=== PATIENT | female | born 1980 | race Caucasian/White ===

== ENCOUNTER 2020-02-23 07:05 | Inpatient (IN) | payer BC, SELFPAY ==
--- NOTE | 2020-02-22 16:07 | PM.IMHP ---
H&P: HPI History of Present Illness Date/Time: 02/22/20 16:07 Chief complaint: Pre-admit Narrative: 39 y/o primigravida at 40 weeks with breech presentation discovered last week. She is interested in attempting ECV and inducing labor if successful, and proceeding with primary if not. has been otherwise uncomplicated. GBS neg. Blood type Apos. Ultrasound exam on 02/16/20 showed EFW 8#2oz, normal AFV, anterior fundal placenta, breech presentation. Review of Systems Review of Systems: All systems reviewed & are unremarkable except as noted in HPI and below [facility] Surgical History Surgical History History of tonsillectomy Family History Family History Grandparent Deaf Breast cancer Prostate carcinoma Sibling Heart defect Social History Social History Substance use: never Spiritual care concerns: No Meds Home Medications and Allergies Home Medications Medication Instructions Recorded Confirmed Type PNV cmb#95-ferrous fumarate-FA 1 tablet PO DAILY 01/24/20 01/24/20 History [] folic acid 0.4 mg PO DAILY 01/24/20 01/24/20 History Allergies Allergy/AdvReac Type Severity Reaction Status Date / Time coffee (Coffea arabica) Allergy Sneezing Verified 01/24/20 12:35 Exam Const: Orientation/consciousness: patient oriented x3 Other: Well-developed, well-nourished female in no acute distress. Neck: Thyroid: thyroid normal Lymphatic: no lymphadenopathy noted (in neck, axilla or inguinal nodes) Resp: Effort & Inspection: normal respiratory effort Auscultation: clear to auscultation bilaterally Cardio: Rate: regular rate Rhythm: regular rhythm Heart sounds: S1 normal heart sound present and S2 normal heart sound present GI: Other: ABD: Soft, nontender, gravid. FH 39cm. FHR 150bpm. : General: Yes no CVA tenderness Other: Cervix fingertip / 50%/ -2 Back/Spine/Pelvis: Back: no CVA tenderness Skin: General skin exam: normal color and no rashes or lesions noted Neuro: General: patient oriented x3 Extrem: Other: Extremities: nontender with no edema Psych: Mental Status: mental status grossly normal Affect: normal affect Assessment and Plan Assessment and plan (1) Breech presentation: Code(s): O32.1XX0 - Maternal care for breech presentation, not applicable or unspecified Status: Acute Assessment and Plan: IUP at 40 weeks with breech presentation. Have offered ECV versus primary . She is interested in ECV. If successful, will proceed to induction of labor. If not, proceed to . She understands risks of surgery to include risks of anesthesia, risks of pain, infection, bleeding, blood products, thromboembolic phenomena and damage to adjacent structures such as bowel, bladder, ureters, blood vessels and nerves. She understands all these risks and elects to proceed.
[2020-02-23] VITALS (120 sets, daily range): BP systolic 75–156; BP diastolic 51–96; PULSE 44–163; RESP 16–20; TEMP 36.3–37; O2SAT 96–100; BMI 30.2
[2020-02-23 07:46] LABS: Basophils Percent Auto 0.3 % (0.2-1.2); Eosinophils Absolute Auto 0.1 K/mm3 (0-0.3); Eosinophils Percent Auto 0.7 % (0-4.4); Hematocrit 36.4 % (37.0-47.0); Hemoglobin 12.2 g/dL (12.0-15.0); Immature Granulocyte Absolute 0.17 K/mm3 (0.00-0.031); Immature Granulocyte Percent A 1.8 % (0-0.5); Lymphocytes Percent Auto 25.9 % (18.3-44.2); Mean Corpuscular HGB Conc 33.5 g/dl (32-36); Mean Corpuscular Hemoglobin 28.9 pg (26-34); Mean Corpuscular Volume 86.3 fl (80-100); Mean Platelet Volume 11.8 fl (7.4-10.4); Monocytes Absolute Auto 0.7 K/mm3 (0.1-0.6); Monocytes Percent Auto 6.7 % (2.6-8.5); Neutrophils Absolute Auto 6.3 K/mm3 (1.3-6.7); Neutrophils Percent Auto 64.6 % (45.5-73.1); Platelet Count Result 186 k/mm3 (150-375); Red Blood Count 4.22 M/mm3 (4.2-5.4); Red Cell Distribution Width 15.3 % (11.5-14.5); White Blood Count 9.7 K/mm3 (4.5-10.0)
--- NOTE | 2020-02-23 07:59 | LDADM ---
This patient, Jacque Jhaveri, was admitted to Labor/Delivery/Recovery 118 on 02/23/20 at 07:05. Plans for labor, pain management and were discussed with patient. Patient/family oriented to hospital policies and general routines including ID bracelet, bed and alarms, visiting hours, pain management, procedures, bathroom and other care routines, personal items, smoking policy, room service/diet and guest tray routines, infant security routines, and visiting hours. Patient/Family are encouraged to report perceived risks to care and to ask questions if they do not understand what they are told or what they should do. See OBIX for further documentation.
[2020-02-23] MEDS: LACTATED RINGERS 1,000 ML 125 ML IV CONT ×4 (08:09→11:54)
--- NOTE | 2020-02-23 08:35 | P.PNAN_ITS ---
Anes - Eval Pre Procedure Procedure: labor epidural Date/Time: 02/23/20 08:35 Preop Diagnosis: labor pain Pre Op Diagnosis: External version Patient Data Age: 39 Gender: F Height: 5 ft 4 in Weight: 80 kg Last Vital Signs Pulse 71 02/23/20 08:32 BP 107/82 02/23/20 08:32 Allergies Allergy/AdvReac Type Severity Reaction Status Date / Time coffee (Coffea arabica) Allergy Sneezing Verified 01/24/20 12:35 Home Medications Medication Instructions Recorded Confirmed Type PNV cmb#95-ferrous fumarate-FA 1 tablet PO DAILY 01/24/20 01/24/20 History [] folic acid 0.4 mg PO DAILY 01/24/20 01/24/20 History Laboratory Tests 02/23/20 02/23/20 07:40 07:40 WBC 9.7 K/mm3 K/mm3 (4.5-10.0) RBC 4.22 M/mm3 M/mm3 (4.2-5.4) Hgb 12.2 g/dL g/dL (12.0-15.0) Hct 36.4 % L % (37.0-47.0) MCV 86.3 fl fl (80-100) MCH 28.9 pg pg (26-34) MCHC 33.5 g/dl g/dl (32-36) RDW 15.3 % H % (11.5-14.5) Plt Count 186 k/mm3 k/mm3 (150-375) MPV 11.8 fl H fl (7.4-10.4) Immature Gran % (Auto) 1.8 % H % (0-0.5) Neut % (Auto) 64.6 % % (45.5-73.1) Lymph % (Auto) 25.9 % % (18.3-44.2) [place] % (Auto) 6.7 % % (2.6-8.5) Eos % (Auto) 0.7 % % (0-4.4) Baso % (Auto) 0.3 % % (0.2-1.2) Lymph # (Auto) 2.50 K/mm3 K/mm3 (0.9-3.2) [place] # (Auto) 0.7 K/mm3 H K/mm3 (0.1-0.6) Eos # (Auto) 0.1 K/mm3 K/mm3 (0-0.3) Baso # (Auto) 0.0 K/mm3 K/mm3 (0.0-0.1) Abs Immat Gran (auto) 0.17 K/mm3 H K/mm3 (0.00-0.031) Absolute Neuts (auto) 6.3 K/mm3 K/mm3 (1.3-6.7) Absolute Nucleated RBC 0.0 K/mm3 K/mm3 (0.0-0.012) Nucleated RBC % 0.0 % % (0.0-0.2) RPR Pending Patient hx anesthesia problems: none Family hx anesthesia problems: none PMFSH Surgical History Surgical History History of tonsillectomy Family History Family History Grandparent Deaf Breast cancer Prostate carcinoma Sibling Heart defect Social History Social History Smoking status: Never smoker Second hand tobacco smoke exposure: No Substance use: never Spiritual care concerns: No Exam Day of Procedure 02/23/20 08:35
[2020-02-23] MEDS: TERBUTALINE SULFATE 1 MG/ML VIAL 0.25 MG SUB-Q (10:05)
--- NOTE | 2020-02-23 12:12 | PM.OBPNLAB ---
Pain Control Date/time seen: 02/23/20 4781 Assessment and Plan Comments: AVSS ABD soft, nontender, gravid, vertex EXT nontender NST reactive TOCO: rare contractions Bedside ultrasound shows ashley breech presentation, with back on maternal left, adequate AFV, fundal placenta. Procedure: She was given terbuatline 0.25mg sc x 1. Under ultrasound guidance, the breech was elevated and a forward (counterclockwise) somersault was attempted. This was unsuccessful, so a reverse (clockwise) somersault was attempted. Also not successful. One final attempt was made, then we decided to abandon further attempts. FHR was visualized and reassuring throughout. The patient tolerated the procedure well. A: Persistent breech presentation at 40 weeks, failed ECV. P: I offered her a primary . Reviewed risks, benefits, alternatives in detail. She unterstands and elects to proceed.
[2020-02-23] MEDS: ceFAZolin 2 GM/D5W 50 ML 2 GM/50 ML BAG IVPB (12:17)
--- NOTE | 2020-02-23 13:03 | PM.OBPRVD ---
OB - Delivery Note Procedure Delivery date: 02/23/20 Procedure: Procedures Operation Date: 02/23/20 12:00 <No data on this case meets the specified criteria> Attempted external cephalic version under ultrasound guidance. Primary low transverse delivery Specimen: Yes (cord blood) Estimated blood loss (mL): 210 Anesthesia type: Epidural Disposition: PACU Complications: None Narrative: The patient was taken to the operating room where she was prepared and draped in the usual sterile fashion in dorsal supine position with a leftward tilt. She received cefazolin preoperatively. Spinal anesthesia was found to be adequate. A Pfannenstiel skin incision was made and carried through to the underlying layer of the fascia. The fascia was incised in the midline and the incision was extended laterally. The fascia was dissected free of the underlying rectus muscles. The rectus muscles were in the midline. The peritoneum was identified, tented up and entered sharply. The peritoneal incision was extended superiorly and inferiorly with good visualization of the bladder. The bladder blade was placed. The vesicouterine peritoneum was identified, tented up and entered sharply. The incision was extended laterally and the bladder flap was developed. The bladder blade was replaced. The uterus was then incised sharply in a transverse fashion along the lower uterine segment. The incision was extended laterally. The infant's head was delivered atraumatically to the sterile field, followed by the body. The nose and mouth were bulb suctioned. After a delay, the cord was clamped and cut. The infant was handed off the field. Cord blood was collected. The placenta was removed manually and was passed off the field. The uterus was exteriorized and cleared of all clots and debris. The uterine incision was reapproximated using 0 Monocryl in a running, locked fashion. A second, imbricating layer was placed. Excellent hemostasis resulted as did excellent reapproximation of the normal anatomy. The uterus was returned the abdomen. The pelvis was irrigated copiously with warmed normal saline. Rigorous hemostasis was assured. The fascial layer was reapproximated using 0 Vicryl in a running fashion. The skin was closed with a running, subcuticular stitch of 4 0 Vicryl. Dermaflex was applied externally. Sponge, lap, needle and instrument counts were correct. The patient was taken to the recovery room in stable condition. The infant went to the nursery in stable condition. I was present and scrubbed the entire procedure. Baby Date of : 02/23/20 Time of : 12:35 Weeks of gestation at delivery: 40 Infant gender: Female Weight (pounds): 8 Weight (ounces): 4 presentation: breech Placenta delivery description: Manual Removal and Normal Configuration cord vessel description: 3 Vessels score one minute: 8 score five minutes: 9
[2020-02-23] MEDS: OXYTOCIN 30 UNITS/NS 500 ML 30 UNITS/500 ML BAG 125 UNITS IV CONT (14:08)
--- NOTE | 2020-02-23 15:40 | OBPPTRN ---
Patient transferred to post room # 290 via stretcher. Support person present. Oriented to unit, room, information board, rooming in, admission packet and security measures. Patient verbalizes understanding.
[2020-02-23] MEDS: KETOROLAC 30 MG/ML VIAL (*BKC) IV PUSH (16:29)
[2020-02-23] MEDS: ONDANSETRON INJ 4 MG/2 ML VIAL IV PUSH (18:22)
[2020-02-24 00:15] VITALS: BP 122/72; PULSE 45; RESP 18; TEMP 36.5; O2SAT 96
[2020-02-24] MEDS: PROCHLORPERAZINE EDISYLATE 10 MG/2 ML VIAL IV PUSH (01:30)
[2020-02-24 01:37] LABS: Basophils Percent Auto 0.1 % (0.2-1.2); Hematocrit 28.9 % (37.0-47.0); Hemoglobin 9.4 g/dL (12.0-15.0); Immature Granulocyte Absolute 0.14 K/mm3 (0.00-0.031); Lymphocytes Absolute Auto 1.54 K/mm3 (0.9-3.2); Lymphocytes Percent Auto 11.1 % (18.3-44.2); Mean Corpuscular HGB Conc 32.5 g/dl (32-36); Mean Corpuscular Hemoglobin 28.7 pg (26-34); Mean Corpuscular Volume 88.4 fl (80-100); Mean Platelet Volume 11.7 fl (7.4-10.4); Monocytes Absolute Auto 0.5 K/mm3 (0.1-0.6); Monocytes Percent Auto 3.7 % (2.6-8.5); Neutrophils Absolute Auto 11.7 K/mm3 (1.3-6.7); Neutrophils Percent Auto 84.1 % (45.5-73.1); Platelet Count Result 132 k/mm3 (150-375); Red Blood Count 3.27 M/mm3 (4.2-5.4); Red Cell Distribution Width 15.4 % (11.5-14.5); White Blood Count 13.9 K/mm3 (4.5-10.0)
[2020-02-24 04:20] VITALS: BP 118/74; PULSE 73; RESP 18; TEMP 36.6; O2SAT 98
[2020-02-24 06:45] VITALS: BP 116/74; PULSE 53; RESP 20; TEMP 36.9
--- NOTE | 2020-02-24 07:03 | PM.OBPNVD ---
OB - PN: Subj Subjective Date/time seen: 02/24/20 07:03 Patient comments: no complaints and pain well controlled baby status: doing well and nursing well OB - PN: Obj Data Labs CBC & Chem 7: 02/24/20 01:33 Labs: Laboratory Results - last 24 hr 02/23/20 02/23/20 02/24/20 07:40 07:40 01:33 WBC 9.7 13.9 H RBC 4.22 3.27 L Hgb 12.2 9.4 L Hct 36.4 L 28.9 L MCV 86.3 88.4 MCH 28.9 28.7 MCHC 33.5 32.5 RDW 15.3 H 15.4 H Plt Count 186 132 L MPV 11.8 H 11.7 H Immature Gran % (Auto) 1.8 H 1.0 H Neut % (Auto) 64.6 84.1 H Lymph % (Auto) 25.9 11.1 L [place] % (Auto) 6.7 3.7 Eos % (Auto) 0.7 0.0 Baso % (Auto) 0.3 0.1 L Lymph # (Auto) 2.50 1.54 [place] # (Auto) 0.7 H 0.5 Eos # (Auto) 0.1 0.0 Baso # (Auto) 0.0 0.0 Abs Immat Gran (auto) 0.17 H 0.14 H Absolute Neuts (auto) 6.3 11.7 H Absolute Nucleated RBC 0.0 0.0 Nucleated RBC % 0.0 0.0 Blood Type O Positive Antibody Screen Negative OB - PN A/P Plan day: 1 Plan: routine care Time Spent With Patient Time: Total time spent is greater than 50% in coordination of care (as documented) at patient's floor/unit and/or counseling patient: Time with patient: less than 15 minutes Review of Systems Review of Systems: All systems reviewed & are unremarkable except as noted in HPI and below Exam Const: General: no acute distress Eyes: General: appearance normal, both eyes and all related structures Neck: Neck: supple and no JVD Thyroid: thyroid normal Resp: Effort & Inspection: normal respiratory effort Auscultation: clear to auscultation bilaterally Cardio: Rate: regular rate Rhythm: regular rhythm GI: Inspection: normal to inspection and incision (cdi) Percussion: Yes normal to percussion Auscultation: normal bowel sounds : General: Yes bladder normal to palpation External Female Exam: normal external appearance Speculum Exam - Vagina: normal vaginal discharge and No vaginal bleeding Speculum Exam - Cervix: nontender Bimanual exam- vagina & uterus: bladder normal to palpation and No Cervical tenderness present OB/external & speculum: No vaginal bleeding Skin: General skin exam: no rashes or lesions noted Extrem: General: normal to inspection and no edema Psych: Mental Status: mental status grossly normal Affect: normal affect
--- NOTE | 2020-02-24 07:40 | PC.NURSE ---
Mother called out for assist with feeding. Mother has been attempting to breast and is unable to obtain a deep latch. Infant is eagerly rooting with heavy sucking. Reviewed feeding cues, frequencies, duration of feedings, feeding elimination flow sheet, and signs of adequate intake. Demonstrated stimulation techniques to wake for feeding. Assisted with to breast. Reviewed positioning/alignment in cross cradle, holding breast in U hold and guided asymmetrical latch on. Discussed rational for each. After several attempts, infant was unable to latch correctly. Reviewed feeding options due to the time from last feeding. Parents will supplement and suggested mother will initiate pump
[2020-02-24 08:29] LABS: Rapid Plasma Reagin Non-Reactive (NonReactive)
[2020-02-24] MEDS: KETOROLAC 30 MG/ML VIAL (*BKC) IV PUSH (08:42)
[2020-02-24] MEDS: MULTIVIT/MIN/PREN/FOL AC/IRON TABLET 1 TAB PO (08:42)
[2020-02-24] MEDS: DOCUSATE SODIUM 100 MG CAPSULE PO ×2 (08:42→16:07)
[2020-02-24] MEDS: POLYSACCHARIDE IRON COMPLEX 150 MG CAPSULE PO ×2 (08:42→16:07)
--- NOTE | 2020-02-24 09:12 | WPDANLDPN2 ---
Anes-Prog Note L&D Date/Time: 02/24/20 09:12 Comfortable throughout: section Neuraxial method: epidural Epidural/Spinal procedure site: clean & non-tender Neuro status: Neuro function grossly intact. Cardiovascular status: normal Respiratory status: normal Airway patency: baseline Mental status: baseline Post-Op hydration status: normal Vital Signs: Last Vital Signs Temp 36.9 C 02/24/20 06:45 Pulse 53 L 02/24/20 06:45 Resp 20 02/24/20 06:45 BP 116/74 02/24/20 06:45 Pulse Ox 98 02/24/20 04:20 I/O: Intake & Output 02/23/20 02/24/20 02/24/20 23:59 07:59 15:59 Intake Total 800 1600 Output Total 2550 760 Balance -1750 840 Post-procedural complaints: none Patient feedback: Patient satisfied with anesthetic care.
--- NOTE | 2020-02-24 09:13 | WPDANLDNPN2 ---
Anes-Prog Note L&D-Neuraxial Date/Time: 02/24/20 09:13 Neuraxial medications: epidural PF morphine Opiod-related complaints: none Patient feedback: Patient satisfied with post-operative pain management.
--- NOTE | 2020-02-24 09:50 | PC.NURSE ---
Assisted mother with her Spectra pump. Instructions given on breast pump care and usage, pumping schedule, nipple care, and collection and storage of breast milk. Encouraged [id number], breast massage and manual expression to stimulate supply. Assessed patient for correct flange size, placement and draw. Patient verbalizes and demonstrates understanding of instructions.
--- NOTE | 2020-02-24 12:10 | PC.NURSE ---
Mother called out for assist with feeding. Assisted with to breast. Reviewed positioning/alignment in cross cradle, holding breast in U hold and guided asymmetrical latch on. Discussed rational for each. After several attempts, was able to latch correctly. Once on breast nursed eagerly with steady draws and frequent swallowing, for short burst followed with long pausing. Reviewed signs of a correct latch, effective nursing and suck swallow ratio. was able to maintain latch without discomfort to mother. Nipple care reviewed. Advised to stimulate to keep infant awake and nursing effectively for increased intake and assist with maintaining deep latch. noted. Demonstrated how to adjust latch more deeply while feeding. Instructed mother to call out for RN assistance if she is unable to latch infant for feeding or she has discomfort with nursing. Instructed feeding should be initiated three hours from start of last feeding or if feeding cues are noted before. Mother voiced understanding of information shared. Mother states she will continue to supplement for a few feedings.
[2020-02-24] MEDS: TETANUS,DIPHTHERIA,AC PERTUSSIS ADULT (0.5 ML) BOOSTRIX IM (14:55)
[2020-02-24] MEDS: IBUPROFEN 600 MG TABLET PO ×2 (14:55→20:39)
[2020-02-24 20:30] VITALS: BP 117/64; PULSE 70; RESP 16; TEMP 36.6; O2SAT 99
[2020-02-25] MEDS: IBUPROFEN 600 MG TABLET PO (05:35)
--- NOTE | 2020-02-25 07:33 | PM.OBPNVD ---
OB - PN: Subj Subjective Date/time seen: 02/25/20 07:33 Patient comments: no complaints and pain well controlled baby status: doing well and nursing well OB - PN: Obj Data Labs CBC & Chem 7: 02/24/20 01:33 Labs: Laboratory Results - last 24 hr 02/23/20 07:40 RPR Non-reactive OB - PN A/P Plan day: 2 Plan: routine care, discharge home and follow up 6 weeks Comments: 4 weeks Time Spent With Patient Time: Total time spent is greater than 50% in coordination of care (as documented) at patient's floor/unit and/or counseling patient: Time with patient: less than 15 minutes Review of Systems Review of Systems: All systems reviewed & are unremarkable except as noted in HPI and below Exam Const: General: no acute distress Eyes: General: appearance normal, both eyes and all related structures Neck: Neck: supple and no JVD Thyroid: thyroid normal Resp: Effort & Inspection: normal respiratory effort Auscultation: clear to auscultation bilaterally Cardio: Rate: regular rate Rhythm: regular rhythm GI: Inspection: normal to inspection and incision (cdi) Percussion: Yes normal to percussion Auscultation: normal bowel sounds : General: Yes bladder normal to palpation External Female Exam: normal external appearance Speculum Exam - Vagina: normal vaginal discharge and No vaginal bleeding Speculum Exam - Cervix: nontender Bimanual exam- vagina & uterus: bladder normal to palpation and No Cervical tenderness present OB/external & speculum: No vaginal bleeding Skin: General skin exam: no rashes or lesions noted Extrem: General: normal to inspection and no edema Psych: Mental Status: mental status grossly normal Affect: normal affect
[2020-02-25] MEDS: MULTIVIT/MIN/PREN/FOL AC/IRON TABLET 1 TAB PO (08:21)
[2020-02-25] MEDS: DOCUSATE SODIUM 100 MG CAPSULE PO (08:21)
[2020-02-25] MEDS: POLYSACCHARIDE IRON COMPLEX 150 MG CAPSULE PO (08:21)
[2020-02-25 08:25] VITALS: BP 112/68; PULSE 61; RESP 18; TEMP 36.7
--- NOTE | 2020-02-25 08:30 | PC.NURSE ---
Patient viewed the discharge video Mother & Baby Care, The First Two Weeks . Patient was given the opportunity and encouraged to ask questions. Patient verbalized understanding of information shared and has been given the mother/baby guide for home reference.
[2020-02-27 09:13] VITALS: BP 96/54; PULSE 88; RESP 20; TEMP 37; O2SAT 98
--- NOTE | 2020-02-28 20:01 | PM.OBDSVD ---
DS: Admitting Diagnosis Admitting Diagnosis Admitting Diagnosis: Breech presentation at term DS: Discharge Diagnosis Discharge Diagnosis (1) Breech presentation: Code(s): O32.1XX0 - Maternal care for breech presentation, not applicable or unspecified Status: Acute OB - DS: Summary OB Procedures : Ultrasound and External version OB Procedures Intrapartum: OB Procedures: : None Peripartum Data Procedures: Procedures Operation Date: 02/23/20 12:00 Actual Procedures Side Surgeon p Section Chang Mai MD Time Spent with Patient Time attestation: Total time spent providing and/or coordinating discharge services: Discharge Plan Discharge Attending physician on discharge: Chang Mai Discharging Clinician: Chang Mai Patient Disposition: Home, Self-Care Activity: may shower, may drive after 2 weeks and pelvic rest Diet: regular Wound Care Instructions: follow printed instructions and incision open to air Discharge Instructions: Call or return if temperature above 100.4? F, increased abdominal pain, increased vaginal bleeding or any new problems. Education: Mom and Baby Guide and Preeclampsia Handout Given to: Mother Follow-Up: Call your delivering provider's office for an appointment to be seen in: 1 Week Mom and baby [facility] for the follow-up appointment. Appointment Date/Time: February 27, 2020 at 9:00 am What to expect at your follow-up visit: Physical Assessment Call [phone] if you are unable to keep your appointment time. BREAST CARE: * Wear a snug supportive bra. * For engorgement discomfort: Breast Feeding: * Apply warm moist washcloths * Express milk as needed to relieve engorgement * Wear loose clothing Bottle Feeding: * May apply ice packs * For sore nipples: * Identify correct latch-on * Apply warm moist washcloths before and after nursing * Air dry nipples after nursing * May apply Lansinoh cream to nipples ABDOMINAL INCISION: (if applicable) * Allow incision to air dry * Do NOT use lotions for powders on your incision * When showering, allow soap and water to run over the incision, but do not wash incision EPISIOTOMY/PERINEAL CARE: * Until bleeding stops, use your sandra bottle after urinating * Change your pad frequently throughout the day * No tub baths until seen by your physician - You may shower ACTIVITY: * Rest as much as possible. * Do not exercise or lift anything heavier than your baby (such as laundry or other children.) * Avoid stairs or driving as much as possible. * Do not put anything into the vagina. No douching, tampons, or sexual activity until seen by physician. NOTIFY PHYSICIAN IF YOU HAVE ANY QUESTIONS OR IF ANY OF THE FOLLOWING SYMPTOMS OCCUR: * If your incision becomes red, swollen, or more painful than what you have experienced in the hospital. * If your vaginal bleeding becomes foul smelling. * If your vaginal bleeding becomes more heavy than a period or if your bleeding changes from pink to bright red. However, you may pass an occasional walnut-sized clot once or twice for the first week . * If you experience a sharp, shooting pain in you calves. * If you discover a hard, reddened area on your breast or if you experience flu-like symptoms. DIET: * Eat regular, well-balanced meals. * Drink plenty of fluids daily. If , drink to thirst. Stand Alone Forms: General Discharge Information Follow-up/Referrals: Chang Mai MD [Physician] - (4 weeks) Discharge Medications: New hydrocodone-acetaminophen [[place]] 5-325 mg tablet 1 - 2 tablet PO Q6H PRN (Reason: pain) Qty: 30 RF: 0 ibuprofen 600 mg tablet 600 mg PO Q6H PRN (Reason: cramps) Qty: 30 RF: 0 Continued folic acid 400 mcg Tablet 0
== END 2020-02-25 14:02 | disposition home or self-care (01) | DRG 788 ==
LOC: ANHOB2 02-25 10:09 → ANHLDR 02-27 11:53 → ANHOB2 02-27 11:53
PROVIDERS: Admitting Provider Obstetrics & Gynecology; Visit Provider Obstetrics & Gynecology
PROC: 10D00Z1 Extraction of Products of Conception, Low, Open Approach (ICD-10-PCS; CPT 59514; principal; 2020-02-23 12:00)
DX: O32.1XX0 Maternal care for breech presentation, not applicable or unspecified (principal); Z37.0 Single live birth; Z3A.40 40 weeks gestation of pregnancy
CPT/HCPCS: 36415; 85025; 86592; 86850; 86900; 86901; 90715; A9270; J0131; J0690; J0780; J1100; J1885; J2274; J2370; J2405; J2590; J2795; J3105; J7120